=== PATIENT | male | born 1965 | race Hispanic/Latino ===

== ENCOUNTER 2022-02-04 12:31 | Emergency (ER) | payer SELFPAY ==
[2022-02-04 12:47] VITALS: BP 164/103; PULSE 99; RESP 16; TEMP 37.6; O2SAT 97
--- NOTE | 2022-02-04 13:01 | ED.GENADULT ---
HPI - General Adult General Chief complaint: Suspected CVA Stated complaint: facial Time Seen by Provider: 02/04/22 12:53 Source: patient and family Mode of arrival: ambulatory Limitations: no limitations History of Present Illness HPI narrative: Patient presents today complaining of left-sided facial droop since 6:00 this morning with mild headache. Denies any additional symptoms to include dizziness, vision changes, chest pain, shortness of breath, numbness or tingling in the extremities. He has history of hypertension, high cholesterol, for which he takes medication prescribed in [place]. Does not take his medication consistently. Did not take his medications this morning. No history of CVA or TIA. Review of Systems Review of Systems: CONSTITUTIONAL: Denies body aches, fever, chills, or sweats. EYES: Denies visual changes, redness, or discharge. ENT: Denies rhinorrhea, congestion, sore throat, or otalgia. CARDIOVASCULAR: Denies chest pain, palpitations, or edema. RESPIRATORY: Denies cough or dyspnea. GASTROINTESTINAL: Denies abdominal pain, nausea, vomiting, or diarrhea. GENITOURINARY: Denies dysuria or hematuria. SKIN: Denies rash, itching, or wounds. MUSCULOSKELETAL: Denies back pain, joint pain, or myalgia. NEUROLOGIC: Denies numbness, tingling, or weakness.+ Facial droop, headache PSYCH: Denies depression or anxiety. [facility] Past Medical History Medical History (Updated 02/04/22 @ 13:34 by Kassandra Mckinnon, [facility], ) High cholesterol Hypertension Comments At time of signature, I have reviewed and agree with nursing past medical, surgical, social and family history unless otherwise noted. Please see nursing chart for further information. There is no relevant family history pertinent to the presenting complaint Exam Narrative: GENERAL: Well-appearing, well-nourished, and in no acute distress. HEAD: Normocephalic, atraumatic. EYES: EOMI. PERRL. No redness or drainage. Conjunctivae normal. ENT: Mucous membranes pink and moist. NECK: Normal AROM. Supple. No lymphadenopathy. CHEST: No respiratory distress. Clear to auscultation. HEART: Regular rate and rhythm. No murmur appreciated. Normal peripheral pulses. EXTREMITIES: Normal range of motion. No edema. SKIN: Warm, dry, no rash. Capillary refill normal. Normal skin turgor. NEURO: Alert and oriented x3. Gait steady. Obvious left sided facial droop. 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 Remainder of neuro exam was normal. PSYCH: Normal affect. No signs of depression or anxiety. Course Course Emergency Course: Emergent transfer to higher level of care to rule out CVA. Level of Care: Express Care Visit Vital Signs Vital signs: Vital Signs Temperature 99.7 F H 02/04/22 12:47 Pulse Rate 99 02/04/22 12:47 Respiratory Rate 16 02/04/22 12:47 Blood Pressure 164/103 H 02/04/22 12:47 Pulse Oximetry 97 02/04/22 12:47 Oxygen Delivery Room Air 02/04/22 12:47 Temperature 99.7 F H 02/04/22 12:47 Pulse Rate 99 02/04/22 12:47 Respiratory Rate 16 02/04/22 12:47 Blood Pressure 164/103 H 02/04/22 12:47 Pulse Oximetry 97 02/04/22 12:47 Oxygen Delivery Room Air 02/04/22 12:47 Reviewed Transfer Transfered to: [place] Transportation: [facility] Transfer rationale: Facial droop Accepting physician: Mya Medical Decision Making Differential Diagnosis Differential Diagnosis: Cordova's palsy, CVA, TIA, aneurysm Vital Signs Vital Signs: Vital Signs Temperature 99.7 F H 02/04/22 12:47 Pulse Rate 99 02/04/22 12:47 Respiratory Rate 16 02/04/22 12:47 Blood Pressure 164/103 H 02/04/22 12:47 Pulse Oximetry 97 02/04/22 12:47 Oxygen Delivery Room Air 02/04/22 12:47 Temperature 99.7 F H 02/04/22 12:47 Pulse Rate 99 02/04/22 12:47 Respiratory Rate 16 02/04/22 12:47 Blood Pressure 164/103 H 02/04/22 12:47 Pulse Oximetry 97 02/04/22 12:47 Oxygen Delivery Room Air 02/04/22 12:47 Lab Data Lab resu
[2022-02-04 13:06] LABS: Glucose Point of Care 145 mg/dl (65-105)
== END 2022-02-04 13:10 | disposition short-term general hospital (02) ==
PROVIDERS: Emergency Provider Nurse Practitioner
DX: R29.810 Facial weakness (principal); R51.9 Headache, unspecified; E78.00 Pure hypercholesterolemia, unspecified; I10 Essential (primary) hypertension
CPT/HCPCS: 82948; 99215; G0463

== ENCOUNTER 2022-02-04 13:26 | Observation (INO) | payer SELFPAY ==
[2022-02-04] VITALS (7 sets, daily range): BP systolic 138–157; BP diastolic 72–106; PULSE 74–99; RESP 16–22; TEMP 36.3–36.8; O2SAT 93–97
--- NOTE | ~2022-02-04 | US_ITS ---
EXAMINATION: US carotid duplex BI DATE: 02/05/2022 08:35 INDICATION: Acute stroke with left facial droop TECHNIQUE: Grayscale, color Doppler, and pulsed Doppler images of the cervical carotid arteries were obtained. The degree of vessel stenosis is placed in one of the following categories: normal, <50%, 5 0-69%, >=70% but less than near-occlusion, near-occlusion, or total occlusion. Note that percent sten osis relative to normal distal artery lumen diameter is indirectly measured from velocity measurement s as described by Scott, et al. Radiology 2003; 229:340-346. COMPARISON: None. FINDINGS: RIGHT: The right common carotid artery (CCA) peak systolic velocity (PSV) is 93 cm/s. The right internal car otid artery (ICA) PSV is 56 cm/s. The right ICA end-diastolic velocity (EDV) is 15 cm/s. The right IC A/CCA PSV ratio is 0.6. Grayscale and color Doppler images yield an estimate of <50% diameter reducti on from plaque in the ICA. The external carotid artery (ECA) PSV is 78 cm/s. There is antegrade flow in the right vertebral artery. LEFT: The left CCA PSV is 101 cm/s. The left ICA PSV is 76 cm/s. The left ICA EDV is 17 cm/s. The left ICA/ CCA PSV ratio is 0.8. Grayscale and color Doppler images yield an estimate of <50% diameter reduction from plaque in the ICA. The ECA PSV is 67 cm/s. There is antegrade flow in the left vertebral artery . IMPRESSION: 1. <50% stenosis in the right internal carotid artery. 2. <50% stenosis in the left internal carotid artery. Reviewed, dictated and finalized at location A.
--- NOTE | ~2022-02-04 | MR_ITS ---
EXAMINATION: MR brain/brain stem wo/w con DATE: 02/05/2022 08:19 INDICATION: Acute stroke with left facial droop and slurred speech TECHNIQUE: Magnetic resonance imaging (MRI) of the brain and brainstem was performed without and with 19 mL Multihance intravenous contrast. Sequences included sagittal and axial T1-weighted SE, axial d iffusion-weighted FS SE, axial 3D SWAN, axial T2-weighted FLAIR, and axial T2-weighted FSE. Postcontr ast axial and coronal T1-weighted SE was obtained. Apparent diffusion coefficient (ADC) maps were cre ated. COMPARISON: None. FINDINGS: There are no areas of restricted diffusion to suggest acute infarction. Couple small foci of suscepti bility artifact in the right parieto-occipital region which on CT correspond to small dystrophic calc ifications. No intracranial hemorrhage or abnormal intracranial mass lesion. There are few scattered areas of nonspecific increased T2-weighted signal intensity in the cerebral white matter which is wit hin normal limits for age, predominantly involving the subcortical white matter of the right frontal lobe centrum semiovale. There are no intraparenchymal signal abnormalities seen on the other pulse se quences. The ventricles are symmetric and normal in size. There are no abnormal extra-axial fluid col lections. Flow voids are seen in the cerebral arteries on the T2-weighted sequences consistent with t heir expected patency. Mucous retention cyst along the floor of the right maxillary sinus. Visualized orbits and soft tissues are unremarkable. There are no areas of abnormal enhancement on the post con trast images. IMPRESSION: 1. A few scattered small foci of nonspecific white matter T2 hyperintensity which is within normal li mits for age. No acute intracranial process. Reviewed, dictated and finalized at location A. IMPRESSION: 1. A few scattered small foci of nonspecific white matter T2 hyperintensity whi ch is within normal limits for age. No acute intracranial process.
--- NOTE | ~2022-02-04 | XR_ITS ---
EXAMINATION: XR chest 1V DATE: 02/04/2022 13:59 INDICATION: Left facial weakness. TECHNIQUE: A single frontal view of the chest was obtained. COMPARISON: None. FINDINGS: There is elevation of right hemidiaphragm. There are airspace opacities at the lung bases. No pleural effusion or pneumothorax. The heart size is normal. IMPRESSION: 1. Airspace opacities at the lung bases, consistent with atelectasis or less likely pneumonia. 2. Elevation of right hemidiaphragm. Reviewed, dictated and finalized at location A. IMPRESSION: 1. Airspace opacities at the lung bases, consistent with atelectasis or less li norma pneumonia. 2. Elevation of right hemidiaphragm.
--- NOTE | ~2022-02-04 | CT_ITS ---
EXAMINATION: CT brain wo con DATE: 02/04/2022 13:55 INDICATION: Left facial droop. Cerebrovascular accident. TECHNIQUE: Computed tomography (CT) of the head was performed without intravenous contrast. The mA wa s adjusted according to patient size. Iterative reconstruction technique was employed. Exam dose: 60 5.33 mGy-cm total exam DLP. COMPARISON: None FINDINGS: No intracranial mass lesion or hemorrhage or cerebrovascular accident is detected. No midli ne shift or mass effect. There are a couple of posterior right parietal calcifications, chronic. There is nonspecific diminished attenuation of the cerebral white matter, likely due to chronic small vessel ischemic changes. Normal ventricular size. No subdural or epidural hematoma. Included paranasal sinuses and mastoid air cells are normally developed and aerated. No fracture or bone destruction of the cranial vault. IMPRESSION: Chronic small vessel ischemic changes of the cerebral white matter No acute intracranial finding CT is not sensitive for detection of hyperacute nonhemorrhagic CVA. Reviewed, dictated and finalized at Location A. Reviewed, dictated and finalized at location B.
--- NOTE | 2022-02-04 13:24 | ED.GENADULT ---
HPI - General Adult General Chief complaint: Neuro Symptoms/Deficit Stated complaint: left sided facial droop History of Present Illness HPI narrative: Patient is a 56-year-old male with a history of hypertension, hyperlipidemia, hypertriglyceridemia presenting to the emergency department for evaluation of left-sided facial droop with onset that the patient noticed when he awakened at 6 AM this morning. Last known well was February 03 around 10 PM. Patient states that he is having mildly slurred speech. He does not notice any difficulty with strength. No difficulty with ambulation. He denies any vision changes, dizziness. He denies nausea. He denies any current pain. He denies chest pain, shortness of breath. No known history of stroke. He is not on any anticoagulation. He has been compliant with his medications including his antihypertensives. Patient was seen initially at an urgent care and transferred here for evaluation with concern for stroke. Related Data Allergies Allergy/AdvReac Type Severity Reaction Status Date / Time No Known Allergies Allergy Verified 02/04/22 13:46 Review of Systems Review of Systems: CONSTITUTIONAL: Denies fever, chills, or sweats. EYES: Denies visual changes, redness, or discharge. ENT: Denies rhinorrhea, congestion, sore throat, or otalgia. CARDIOVASCULAR: Denies chest pain, palpitations, or edema. RESPIRATORY: Denies cough or dyspnea. GASTROINTESTINAL: Denies abdominal pain, nausea, vomiting, or diarrhea. GENITOURINARY: Denies dysuria or hematuria. SKIN: Denies rash or itching. MUSCULOSKELETAL: Denies back pain, joint pain, or myalgia. NEUROLOGIC: Denies headache, denies numbness, reports left-sided facial droop, mild difficulty with speech and slurred speech [facility] Past Medical History Medical History High cholesterol Hypertension Social History Social History (Updated 02/04/22 @ 13:50 by Perlita Roque MD) Smoking status: Never smoker Alcohol intake: current Alcohol use details: 2 beers daily Substance use: never Living arrangements: with family Gender identity (if verbalized by the patient): Male Exam Narrative: GENERAL: Awake, alert, conversant HEAD: Normocephalic, atraumatic. EYES: PERRLA and EOMI. ENT: Nares clear, no rhinorrhea or epistaxis. Mucous membranes moist. NECK: Supple. CHEST: No respiratory distress, breathing even and non labored HEART: Regular rate, sinus rhythm ABDOMEN:Non distended, non tender EXTREMITIES: Normal range of motion. No edema. SKIN: Warm, dry, no rash. NEURO:No focal deficits. Alert and oriented x3. Finger to nose intact bilaterally. EOMs intact without nystagmus. Patient with left-sided facial droop, tongue deviation to the right. Grimace asymmetrical. Intact sensation in face IN v1,V2,V3 distribution. Hearing intact bilaterally. Shoulder shrug intact. Strength 5/5 bilateral upper extremities, however the LUE lurer strength is very slightly less than the right. Strength 5/5 bilateral lower extremities. Reflexes 2+ patellar. Heel to watson intact bilaterally. Ambulatory exam deferred. Course Vital Signs Vital signs: Vital Signs Temperature 36.8 C 02/04/22 13:25 Pulse Rate 99 02/04/22 13:25 Respiratory Rate 20 02/04/22 13:25 Blood Pressure 156/96 H 02/04/22 13:25 Pulse Oximetry 95 02/04/22 13:25 Oxygen Delivery Room Air 02/04/22 13:25 Temperature 36.8 C 02/04/22 13:25 Pulse Rate 97 02/04/22 13:35 Respiratory Rate 17 02/04/22 13:35 Blood Pressure 157/94 H 02/04/22 13:35 Pulse Oximetry 93 02/04/22 13:35 Oxygen Delivery Room Air 02/04/22 13:25 Medical Decision Making MDM Narrative Medical decision making narrative: Patient presenting to emergency department from an urgent care for evaluation of left-sided facial droop and findings are concerning for acute ischemic CVA and patient is outside of any intervene of the window given sy
--- NOTE | 2022-02-04 13:27 | ECG_ITS ---
Measurements Intervals Wallace Rate: 93 P: 7 NE: 158 QRS: -3 QRSD: 97 T: 28 QT: 340 QTc: 425 Interpretive Statements SINUS RHYTHM DELAYED PRECORDIAL R/S TRANSITION BASELINE ARTIFACT- I, II, III, AVR, AVL, AVF BORDERLINE ECG Electronically Signed On 02-04-2022 22:35:47 CDT by Faustino Andres D.O.
[2022-02-04 13:39] LABS: Basophils Percent Auto 0.3 % (0.2-1.2); Eosinophils Percent Auto 0.3 % (0-4.4); Hematocrit 41.1 % (42.0-52.0); Hemoglobin 14.4 g/dL (14.0-18.0); Immature Granulocyte Absolute 0.02 K/mm3 (0.00-0.031); Immature Granulocyte Percent A 0.3 % (0-0.5); Lymphocytes Percent Auto 21.7 % (18.3-44.2); Mean Corpuscular Hemoglobin 34.4 pg (26-34); Mean Corpuscular Volume 98.1 fl (80-100); Mean Platelet Volume 9.1 fl (7.4-10.4); Monocytes Absolute Auto 0.9 K/mm3 (0.1-0.6); Monocytes Percent Auto 15.3 % (2.6-8.5); Neutrophils Absolute Auto 3.7 K/mm3 (1.3-6.7); Neutrophils Percent Auto 62.1 % (45.5-73.1); Platelet Count Result 199 k/mm3 (150-375); Red Blood Count 4.19 M/mm3 (4.6-6.20); Red Cell Distribution Width 13.5 % (11.5-14.5)
[2022-02-04 13:40] LABS: Glucose Point of Care 137 mg/dl (65-105)
[2022-02-04 13:49] LABS: Alanine Aminotransferase 36 U/L (6-50); Albumin Level 4.6 g/dL (3.5-5.1); Alkaline Phosphatase 77 U/L (38-126); Anion Gap 8 mmol/L (8-16); Aspartate Amino Transferase 34 U/L (17-59); Bilirubin,Total 0.7 mg/dL (0.2-1.3); Blood Urea Nitrogen 16 mg/dL (9-20); Calcium 8.9 mg/dL (8.4-10.2); Carbon Dioxide 26 mmol/L (22-30); Chloride 103 mmol/L (98-107); Estimated CRCL calculation 105 ml/min; Estimated Glomerular Filt Rate > 60; Glucose 125 mg/dL (65-110); Potassium 3.7 mmol/L (3.4-5.0); Sodium 137 mmol/L (137-145)
[2022-02-04 14:01] LABS: Troponin I < 0.012 ng/mL (0.000-0.034)
[2022-02-04] MEDS: SODIUM CHLORIDE 0.9% IV 1,000 ML 999 ML IV CONT (14:05)
[2022-02-04 14:28] LABS: Appearance Urine Clear (Clear); Bilirubin Urine Negative (Negative); Color Urine Yellow (Yellow); Glucose Urine UA Negative (Negative); Ketones Urine Negative (Negative); Leukocyte Esterase Ur Negative LEU/UL (Negative); Nitrate Urine Negative (Negative); Protein Urine Negative (Negative); Specific Grav Ur 1.015 (1.001-1.035); Urobilinogen Urine 0.2 mg/dL (<2.0)
[2022-02-04 14:46] LABS: Add Urine Microscopic? YES; Blood Urine Trace-Intact (Negative); RBC Urine 0-2 /hpf (0-2); WBC Urine 0-3 /hpf
[2022-02-04 15:01] LABS: SARS-CoV-2 RNA PCR Negative
--- NOTE | 2022-02-04 17:30 | PM.IMHP ---
H&P: HPI History of Present Illness Date/Time: 02/04/22 17:30 Chief Complaint: Facial numbness and tingling Narrative: Patient is a 56 year old male with a past medical history of HTN and HLD that presented to the ED with complaints of left sided facial weakness, numbness, and tingling. He stated that he went to bed normal. This morning he woke up and his face was numb and what seems to be paralysis of the left face. He denies any chest pain, shortness of breath, nausea, vomiting, diarrhea, constipation. He stated that he does have a slight headache behind the left eye. He also stated that he is have slight visual changes on the right side of consistent of blurred vision. He denies any weakness in any other extremity. patient does not physician here he [place] physician in [place] going gets all his medication from [place] at this time. Patient currently lives with his family. His sister was present for the interview. Patient has not tried to take anything this if it helps. patient continues to have sensation and can move his eye a lid however he cannot close his eyelids very tight on the left he can close his eyelid on the right tightly. His smile is very weak on the left. 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 Patient is being admitted to the hospitalist service under observation Review of Systems Review of Systems: All systems reviewed & are unremarkable except as noted in HPI and below PMFSH Past Medical History Medical History (Updated 02/04/22 @ 20:43 by JANE Capps) High cholesterol Hypertension Surgical History Surgical History (Updated 02/04/22 @ 20:43 by JANE Capps) No pertinent past surgical history Family History Family History Other Unknown family medical history Social History Social History (Updated 02/04/22 @ 20:36 by JANE Capps) Social History: Recently moved here from [place] and lives with his family. He wants his brother to be his surrogate and wishes to be a full code at this time. 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 Gender identity (if verbalized by the patient): Male Sexual Orientation (if Verbalized by the Patient): Straight or Heterosexual Spiritual care concerns: No Agree to blood products: Yes Meds Home Medications and Allergies Home Medications Medication Instructions Recorded Confirmed Type ciprofibrate 100 mg PO DAILY 02/04/22 02/04/22 History hydrochlorothiazide 25 mg tablet 25 mg PO DAILY 02/04/22 02/04/22 History telmisartan 40 mg tablet 40 mg PO DAILY 02/04/22 02/04/22 History Allergies Allergy/AdvReac Type Severity Reaction Status Date / Time No Known Allergies Allergy Verified 02/04/22 13:46 Vital Signs Vital Signs - 24 hr 02/04/22 13:25 02/04/22 13:35 02/04/22 16:49 Temperature 98.2 F Pulse Rate 99 97 86 Respiratory Rate 20 17 16 Blood Pressure 156/96 H 157/94 H 138/89 Pulse Oximetry 95 93 94 Oxygen Delivery Room Air Exam Const: General: cooperative, no acute distress, well developed, alert, awake, acute distress and anxious Nutritional Appearance: well nourished Orientation/consciousness: oriented to person, oriented to place, oriented to time and patient oriented x3 Limitations: no limitations HENMT: Head: normal to inspection Ears: hearing grossly normal bilaterally General nose exam: Normal external nose present Mouth: Yes Normal oral and palatal mucosa present, Yes lip normal and Yes tongue normal Teeth and gingiva: abnormal tooth and associated gingiva and poor dentition Eyes: General: appear
--- NOTE | 2022-02-04 22:54 | ADMGEN ---
This patient, Klaus Fox, was admitted to [facility] Surg Room 327-01 at 2005 . Patient/family oriented to hospital policies and general routines including ID bracelet, bed and alarms, visiting hours, pain management, procedures, bathroom and other care routines, personal items, smoking policy, room service/diet, and visiting hours. Information on how to activate the Rapid Response Team has been discussed. Patient/Family are encouraged to report perceived risks to care and to ask questions if they do not understand what they are told or what they should do.
[2022-02-05] VITALS (7 sets, daily range): BP systolic 148–159; BP diastolic 96–105; PULSE 71–87; RESP 16–20; TEMP 36.4–36.6; O2SAT 96–99
--- NOTE | 2022-02-05 06:00 | ECHO_ITS ---
Patient Info Name: Klaus Fox Age: 56 years : 1965 Gender: Male Ht: 64 in Wt: 210 lbs BSA: 2.12 m2 HR: 68 bpm BP: 152 / 98 mmHg Heart Rhythm: Sinus Rhythm Technical Quality: Good Exam Date: 02/05/2022 11:49 AM Exam Location: [facility] Pulmonary Exam Room: [facility] Patient Status: Inpatient Admit Date: 02/04/2022 Staff Ordering Physician: Perlita Roque MD Laborer Pipeline: Melanie Siu RDCS Attending Provider: Anjelica Esteban PA-C Referring Physician: Mya RHOADES; Exam Type: CA echo doppler color flow Study Info Indications - left facial weakness acute cva Complete two-dimensional, color flow and Doppler transthoracic echocardiogram is performed. Summary 1. Complete two-dimensional, color flow and Doppler transthoracic echocardiogram is performed. 2. Normal left ventricular size with moderate concentric hypertrophy. Good systolic function of all segments with no segmental wall motion abnormalities. Ejection fraction 60-65%. Grade 2 diastolic dysfunction is present. 3. Left atrial chamber dimension is mildly enlarged. 4. There is mild aortic root atherosclerosis. 5. No significant valve disease. 6. Normal estimated pulmonary pressure. 7. Normal sinus rhythm. Left Ventricle Left ventricular chamber dimension is normal. Left ventricular systolic function is normal, estimated at 60-65%. There is moderately increased left ventricular wall thickness. Left ventricular septal wall motion is normal. The left ventricular diastolic function is grade II diastolic dysfunction. Right Ventricle Right ventricular chamber dimension is normal. Right ventricular systolic function is normal. Left Atria Left atrial chamber dimension is mildly enlarged. Right Atria Right atrial chamber dimension is normal. Aortic Valve The aortic valve is trileaflet. There is no aortic valve sclerosis. There is no aortic valve stenosis. There is trace aortic valve regurgitation. Pulmonic Valve The pulmonic valve is normal. There is no pulmonic valve stenosis. There is no pulmonic regurgitation. Mitral Valve The mitral valve has normal leaflets. There is no mitral valve stenosis. There is no mitral valve regurgitation. Tricuspid Valve The tricuspid valve leaflets are normal. There is no significant tricuspid valve stenosis. There is trace tricuspid valve regurgitation. No pulmonary hypertension, estimated pulmonary arterial systolic pressure is 31 mmHg. Pericardium/Pleural The pericardium appears normal. There is no pericardial effusion. Inferior Vena Cava Normal inferior vena cava with >50% collapse upon inspiration consistent with Empty right atrial pressure, 10 mmHg. Aorta The aortic root size at the sinus of Valsalva is normal. The prox ascending aorta size is normal. There is mild aortic root atherosclerosis. Left Ventricular Outflow Tract Name Value Normal LVOT 2D LVOT Diameter 2.1 cm LVOT Doppler LVOT Peak Gradient 6 mmHg LVOT Mean Gradient 3 mmHg LVOT VTI 21 cm
[2022-02-05 09:08] LABS: Anion Gap 8 mmol/L (8-16); Blood Urea Nitrogen 11 mg/dL (9-20); Calcium 8.8 mg/dL (8.4-10.2); Carbon Dioxide 23 mmol/L (22-30); Chloride 106 mmol/L (98-107); Estimated CRCL calculation 120 ml/min; Estimated Glomerular Filt Rate > 60; Glucose 126 mg/dL (65-110); Sodium 137 mmol/L (137-145)
[2022-02-05] MEDS: ENOXAPARIN 40 MG/0.4 ML SYRINGE SUB-Q (09:14)
[2022-02-05] MEDS: LOSARTAN POTASSIUM 50 MG TABLET PO (09:14)
[2022-02-05] MEDS: ASPIRIN 81 MG CHEWABLE TABLET PO (09:14)
[2022-02-05] MEDS: hydroCHLOROthiazide 25 MG TABLET PO (09:14)
[2022-02-05 11:11] LABS: Free T4 Free Thyroxine Reflex 0.73 ng/dL (0.78-2.19)
--- NOTE | 2022-02-05 12:45 | WPDNEURCNPN ---
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 Hypertension 2. Hyperlipidemia 3. Hyper triglyceridemia. patient presented to emergency room with left-sided facial droop And information that he woke up in the morning with this particular problem,he was noted having slurred speech but no difficulties with strength of the upper or lower extremities and also with no associated generalized symptoms of nausea and vomiting, he is not allergic to any medication he does have ongoing history of hypertension, never smoked and drinks 2 beers daily ,initial vital signs were stable except blood pressure 157/94, he was noted to have blood sugar only 125 CT scan of the head documented only cerebral white matter disease Review of Systems Review of Systems: All systems reviewed & are unremarkable except as noted in HPI and below PMFSH Past Medical History Medical History (Updated 02/05/22 @ 00:00 by Shara Bo) High cholesterol Hypertension Surgical History Surgical History (Updated 02/04/22 @ 20:43 by JANE Capps) No pertinent past surgical history Family History Family History Other Unknown family medical history Social History Social History (Updated 02/04/22 @ 20:36 by JANE Capps) Social History: Recently moved here from [place] and lives with his family. He wants his brother to be his surrogate and wishes to be a full code at this time. 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 Gender identity (if verbalized by the patient): Male Sexual Orientation (if Verbalized by the Patient): Straight or Heterosexual Spiritual care concerns: No Agree to blood products: Yes Meds Home Medications and Allergies Home Medications Medication Instructions Recorded Confirmed Type ciprofibrate 100 mg PO DAILY 02/04/22 02/04/22 History hydrochlorothiazide 25 mg tablet 25 mg PO DAILY 02/04/22 02/04/22 History telmisartan 40 mg tablet 40 mg PO DAILY 02/04/22 02/04/22 History Allergies Allergy/AdvReac Type Severity Reaction Status Date / Time No Known Allergies Allergy Verified 02/04/22 13:46 Vital Signs Vital Signs - 24 hr 02/04/22 13:25 02/04/22 13:35 02/04/22 16:49 Temperature 36.8 C Pulse Rate 99 97 86 Respiratory Rate 20 17 16 Blood Pressure 156/96 H 157/94 H 138/89 Pulse Oximetry 95 93 94 Oxygen Delivery Room Air 02/04/22 19:46 02/04/22 20:00 02/04/22 23:41 Temperature 36.6 C 36.3 C L Pulse Rate 82 90 74 Respiratory Rate 16 22 H 20 Blood Pressure 155/72 H 148/99 H 143/106 H Pulse Oximetry 96 97 96 Oxygen Delivery 02/04/22 20:10 02/05/22 02:57 02/05/22 00:00 Temperature Pulse Rate 82 74 72 Respiratory Rate 20 Blood Pressure Pulse Oximetry 96 Oxygen Delivery Room Air 02/05/22 03:55 02/05/22 04:00 02/05/22 08:00 Temperature 36.4 C L 36.5 C Pulse Rate 71 72 80 Respiratory Rate 18 16 Blood Pressure 152/98 H 151/99 H Pulse Oximetry 96 97 Oxygen Delivery 02/05/22 09:40 02/05/22 12:00 Temperature 36.4 C Pulse Rate 76 Respiratory Rate 18 Blood Pressure 159/96 H Pulse Oximetry 98 Oxygen Delivery
--- NOTE | 2022-02-05 14:45 | PM.DS ---
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 Discussed appropriate eye care and will need lubricating eye drops qid (2) High cholesterol: Code(s): E78.00 - Pure hypercholesterolemia, unspecified Status: Acute Assessment and Plan: Maintained on ciprofibrate. (3) Hypertension: Code(s): I10 - Essential (primary) hypertension Status: Acute Assessment and Plan: Maintained on HCTZ and telmisartan (4) Abnormal TSH: Code(s): R79.89 - Other specified abnormal findings of blood chemistry Status: Acute Assessment and Plan: TSH slightly abnormal at 5.4 with T4 just below normal limits at 0.73 Plan for repeat TSH with reflex in 4 weeks Patient referred to [facility] primary care center to follow up DS: Summary Hospital Course Hospital Course: Date of admission: 02/04/2022 Date of discharge: 02/05/2022 Klaus Fox is a 56-year-old male with a history of hypertension and hyperlipidemia who presented to the emergency department on 02/04/2022 after being referred from urgent care due to left-sided facial droop with associated slurred speech with onset upon waking the morning of 02/04. He did not have loss of balance or coordination, extremity weakness, aphasia, dysphagia,vertigo. On presentation to the ED, his vital signs are stable, he was afebrile, laboratory workup unremarkable, head CT with no acute intracranial findings. He was admitted to the hospitalist service for further evaluation and management and was seen in consultation by Neurology. Please see above for further details. Acute stroke was ruled out by CT and MRI. Patient's symptoms felt to be secondary to Cordova's palsy. At the time of my evaluation, he actually noticed some improvement in his facial drooping from initial presentation. He was started on steroids. He was referred to Italian speaking primary care provider in should follow-up in 1-2 weeks to assess for improvement of symptoms. Discussed with the patient and his family member worrisome signs and symptoms for which to return and he was educated on his medications. He was determined to no longer require inpatient care and was discharged in hemodynamically stable condition on 02/05/2022. He was also made aware of need for repeat lab testing in 4 weeks to re-evaluate TSH. All communication through use of paraprofessional interpreter via [employer]. Patient reports he has an Azeri-speaking family member who can help him read and and interpret discharge instructions and medications. Status at Discharge Functional status at discharge: independent ambulation Overall status at discharge: patient is progressing back to baseline Time Spent with Patient Time attestation: Total time spent providing and/or coordinating discharge services: 50 minutes Time spent: Greater than 30 minutes Exam Narrative: General: well-nourished, well-appearing 56-year-old male, sitting up in bed, comfortable, NARD Neuro: awake, alert and oriented x4, speech clear, left-sided facial paralysis ( patient unable to upturn mouth to smile on left side, unable to raise left eyebrow, unable to close left eyelid fully). right facial nerve exam is normal. tongue is midline, able to shrug shoulders, no pronator drift, bilateral upper and lower extremity strength 5/5 HEENMT: normocephalic, atraumatic, EOMI, PERRL, scl
== END 2022-02-05 16:20 | disposition home or self-care (01) ==
LOC: ANHED 15:33 → ANH3MEDSUR 17:36
PROVIDERS: Admitting Provider Family Medicine; Emergency Provider Emergency Medicine; Visit Provider Physician Assistant
DX: G51.0 Bell's palsy (principal); I65.23 Occlusion and stenosis of bilateral carotid arteries; I10 Essential (primary) hypertension; E78.00 Pure hypercholesterolemia, unspecified; R79.89 Other specified abnormal findings of blood chemistry; R47.81 Slurred speech; I49.3 Ventricular premature depolarization; Z20.822 Contact with and (suspected) exposure to COVID-19; Z72.89 Other problems related to lifestyle; Z79.899 Other long term (current) drug therapy
CPT/HCPCS: 36415; 70450; 70553; 71045; 80048; 80053; 81001; 82948; 84439; 84443; 84484; 85025; 85610; 85730; 93005; 93306; 93880; 96360; 96372; 99285; A9270; A9577; C9803; G0378; G0379; J1650; J7030; U0003; U0005